=== PATIENT | female | born 1955 | race Caucasian/White ===

== ENCOUNTER 2018-02-23 20:40 | Emergency (ER) | payer BC ==
[2018-02-23 20:41] VITALS: BMI 21.7
[2018-02-23 20:52] VITALS: O2SAT 97
--- NOTE | 2018-02-23 21:21 | C.PDOC ---
History Of Present Illness 62 year old female is brought to the ED by EMS for evaluation of epistaxis that suddenly started today while sleeping. Patient states she suddenly started bleeding from her nose. Patient denies injury, fall, trauma, headache, nose pi cking, dizziness, nausea, vomit. Time Seen by Provider: 02/23/18 21:02 Chief Complaint (Nursing): ENT Problem History Per: Patient, EMS History/Exam Limitations: None Onset/Duration Of Symptoms: Hrs, Sudden Onset Current Symptoms Are (Timing): Still Present Severity: None Anticoagulant/Antiplatlet Use?: No Recent Aspirin Use: No Past Medical History Reviewed: Historical Data, Nursing Documentation, Vital Signs Vital Signs: Last Vital Signs Temp 103 F H 02/23/18 20:46 Pulse 127 H 02/23/18 20:46 Resp 22 02/23/18 20:46 BP 141/92 H 02/23/18 20:46 Pulse Ox 97 02/23/18 20:46 - Medical History PMH: Asthma (no longer for yrs ), Depression (her son killed himself 1 year ago ), Kidney Stones (current), Sleep Apnea (no longer had sinus sx) Denies: Anemia, HTN, Chronic Kidney Disease Surgical History: Endoscopy - [facility] Procedures CYSTOSCOPY NEC (08/29/13) DX ULTRASOUND-URINARY (07/23/14) PERCUTAN NEEDLE BIOPSY OF KIDNEY (07/23/14) RETROGRADE PYELOGRAM (08/29/13) Family History: States: Unknown Family Hx - Social History Hx Tobacco Use: No Hx Alcohol Use: No Hx Substance Use: No - Immunization History Hx Tetanus Toxoid Vaccination: Yes Hx Influenza Vaccination: Yes Hx Pneumococcal Vaccination: Yes Review Of Systems Constitutional: Negative for: Fever, Chills Eyes: Negative for: Vision Change ENT: Positive for: Nose Discharge. Negative for: Nose Pain, Nose Congestion Respiratory: Negative for: Cough, Shortness of Breath Gastrointestinal: Negative for: Nausea, Vomiting, Abdominal Pain Skin: Negative for: Rash Neurological: Negative for: Headache, Dizziness Physical Exam - Physical Exam Appears: Non-toxic, No Acute Distress Skin: Normal Color, Warm, Dry Head: Atraumatic, Normacephalic Eye(s): bilateral: Normal Inspection Nose: No Septal Hematoma, Other (dry blood left nare , no active bleeding. No post nasal blood dripping) Throat: Normal, No Erythema, No Exudate, Other (no blood in posterior oropharynx) Neck: Normal ROM, Supple Chest: Symmetrical Cardiovascular: Rhythm Regular Respiratory: Normal Breath Sounds, No Rales, No Rhonchi, No Wheezing Extremity: Normal ROM, No Tenderness, No Swelling Neurological/Psych: Oriented x3, Normal Speech, Normal Cognition Gait: Steady ED Course And Treatment - Laboratory Results Result Diagrams: 02/23/18 21:32 O2 Sat by Pulse Oximetry: 97 (ON RA) Pulse Ox Interpretation: Normal Medical Decision Making Medical Decision Making: Plan: * Labs CBC wnl spontaneous epistaxis, prob related to dry cold weather labs wnl no bleeding x 1 hour, defer nasal packing/cautery Disposition Doctor Will See Patient In The: Office Counseled Patient/Family Regarding: Studies Performed, Diagnosis - Disposition Disposition: HOME/ ROUTINE Disposition Time: 21:55 Condition: GOOD Forms: [facility] (Lao) - Clinical Impression Clinical Impression: Epistaxis - Scribe Statement The provider has reviewed the documentation as recorded by the Scribe Saqib Dominguez All medical record entries made by the Caridadibmari were at my direction and personally dictated by me. I have reviewed the chart and agree that the record accurately reflects my personal performance of the history, physical exam, medical decision making, and the department course for this patient. I have also personally directed, reviewed, and agree with the discharge instructions and disposition.
[2018-02-23 21:41] LABS: BASO % 0.5 % (0.0-2.0); EOS # 0.1 K/uL (0.0-0.7); EOS % 1.9 % (0.0-4.0); HEMOGLOBIN 14.9 g/dL (11.0-16.0); LYMPH # 1.3 K/uL (1.0-4.3); LYMPH % 23.5 % (20.0-40.0); MEAN CELL VOLUME 88.9 fL (81.0-99.0); MEAN CORPUSCULAR HEMOGLOBIN 30.8 pg (27.0-31.0); MEAN CORPUSCULAR HGB CONC 34.7 g/dL (33.0-37.0); MEAN PLATELET VOLUME 6.6 fL (7.2-11.7); MONO # 0.7 K/uL (0.0-0.8); MONO % 12.6 % (0.0-10.0); NEUT # 3.3 K/uL (1.8-7.0); NEUT % 61.5 % (50.0-75.0); NRBC % 0.2 % (0.0-2.0); RBC 4.82 Mil/uL (3.80-5.20); RED CELL DISTRIBUTION WIDTH 12.5 % (11.5-14.5); WHITE BLOOD COUNT 5.4 K/uL (4.8-10.8)
[2018-02-23 22:07] VITALS: BP 114/82; PULSE 94; RESP 19; TEMP 100.9
== END 2018-02-23 22:05 | disposition home or self-care (01) ==
LOC: C.ER 20:40
DX: R04.0 Epistaxis (principal)